=== PATIENT | female | born 2000 | race Caucasian/White ===

== ENCOUNTER 2021-04-07 14:16 | Emergency (ER) | payer OTHER, SELFPAY ==
[2021-04-07 15:20] VITALS: BP 132/78; PULSE 60; RESP 19; TEMP 37.1; O2SAT 98; BMI 28.3
--- NOTE | 2021-04-07 15:57 | HMH.EDUTC ---
[facility] [place] Clinical Impression: Concussion syndrome Disposition: Home, Self-Care Condition on Discharge: Good Instructions: DI for Concussion, Concussion Additional Instructions: Go home and sit in dark room and allow time for healing Go straight to the closed Emergency Room if you start having worse headache your life, severe vomiting, loss of vision, changes in behavior etc Follow up with your Family Doctor for clearance to return to work Return if needed Make sure you are drinking plenty of fluids Over the counter Tyelnol may help with headache Prescriptions: Ondansetron [Zofran 4mg ODT] 4 mg PO TIDP PRN #6 tab PRN Reason: Nausea Transmission Status: Pending to [id number] Referrals: Provider,Referral, MD [Primary Care Provider] - As needed Forms: Work/School Release Time of Disposition: 16:12 Medical Decision Making - Devante Inquiry Pt receiving controlled substance: No Devante was queried for this patient: No Vital Signs: 04/07/21 15:20 Temperature 98.7 F Temperature Source Oral Pulse Rate [Right Brachial] 60 Respiratory Rate 19 Blood Pressure [Right Arm] 132/78 Blood Pressure Mean [Right Arm] 96 Blood Pressure Source [Right Arm] Automatic Cuff Blood Pressure Position [Right Arm] Sitting 02 Sat by Pulse Oximetry 98 Oxygen Delivery Method Room Air Medical Decision Narrative: Discussed with patient and due to symptoms and headache with blurry vision on and off after hitting her head recommended transfer to the ED and patient refused states that she is only having mild symptoms right now and she has had several concussion in the past and came in to get a not for work States that if symptoms worsen or return she will go straight to ER Patient aware of risks even and still declined [facility] [place] HPI - General Stated complaint: possible concusion Time Seen by Provider: 04/07/21 15:57 Mode of Arrival: Ambulatory Source of Information: Patient Limitations: No Limitations Description of Symptoms (Recalled from Triage Doc. by RN): PATIENT STATES SHE HIT HER HEAD WITH CAR DOOR LAST NIGHT. C/O BLURRED VISION, DIZZINESS, HEADACHE AND NAUSEA HEENT Symptoms (Recalled from RN notes): Yes Resp Symptoms (Recalled from RN notes): No Skin Symptoms (Recalled from RN notes): No MS Symptoms (Recalled from RN notes): No Functional Status (Recalled from RN notes): WNL - History of Present Illness Provider Complaint: Patient states that she has had several concussions in the past States that yesterday she was getting in her car when the wind blew and her door hit her in the back of her head States that she had a headache and dizziness with nausea yesterday with occasional blurry vision States today she has still had achy like headache on and off and she was riding in the car earlier and she felt car sick and had nausea so she was worried she may have a concussion again and she works for the [employer] and wanted to get a note States that right now her symptoms are mild - Related Data Home Medications Medication Instructions Recorded Confirmed drospirenone 3 mg-ethinyl 1 tab PO DAILY tab 07/06/19 04/07/21 estradiol 0.02 mg tablet Previous Rx's Medication Instructions Recorded Ondansetron [Zofran 4mg ODT] 4 mg PO TIDP PRN #6 tab 04/07/21 Allergies Allergy/AdvReac Type Severity Reaction Status Date / Time latex Allergy rash, Verified 07/06/19 18:18 hives, itch - Worker's Comp Is this a Worker's Comp case?: No [facility] History - Hepatitis A Screen Drug use history?: No High risk sexual behaviors?: No History of sexually transmitted infection?: No Currently employed?: No Childcare worker?: No Do you have indoor plumbing?: Yes Do you have electricity?: Yes Attestation statement:: This patient has been screened for Hepatitis A risk factors. I have reviewed the patient's past medical history: Yes Medical History: Reports:: Asthma, Gastroesophageal Reflux Disease(
[2021-04-07 16:16] VITALS: BP 132/78; PULSE 60; RESP 19; TEMP 37.1; O2SAT 98
== END 2021-04-07 16:22 | disposition home or self-care (01) ==
PROVIDERS: Emergency Provider Nurse Practitioner
DX: S06.0X0A Concussion without loss of consciousness, initial encounter (principal); W22.8XXA Striking against or struck by other objects, initial encounter; Y92.89 Other specified places as the place of occurrence of the external cause
CPT/HCPCS: 99202; G0463

== ENCOUNTER 2021-06-10 11:11 | Emergency (ER) | payer OTHER, SELFPAY ==
[2021-06-10 12:51] VITALS: BP 139/78; PULSE 84; RESP 16; TEMP 37.3; O2SAT 99; BMI 28.3
[2021-06-10 13:23] LABS: UTC Influenza A Antigen Negative (Negative); UTC Strep Screen (Rapid) Negative (Negative)
[2021-06-10 13:24] LABS: UTC Influenza B Antigen Negative (Negative)
[2021-06-10 13:47] LABS: Adenovirus,PCR Not Detected (NotDetected); Bordetella Pertussis Not Detected (NotDetected); Chlamydophila Pneumoniae, PCR Not Detected (NotDetected); Coronavirus 229E Not Detected (NotDetected); Coronavirus NL63 Not Detected (NotDetected); Coronavirus OC43 Not Detected (NotDetected); Coronovirus HKU1,PCR Not Detected (NotDetected); Human Metapneumovirus Not Detected (NotDetected); Influenza A, PCR Not Detected (NotDetected); Influenza AH1, 2009 Not Detected (NotDetected); Influenza AH1, PCR Not Detected (NotDetected); Influenza AH3,PCR Not Detected (NotDetected); Influenza B, PCR Not Detected (NotDetected); Mycoplasma Pneumoniae, PCR Not Detected (NotDetected); Parainfluenza 1, PCR Not Detected (NotDetected); Parainfluenza 2, PCR Not Detected (NotDetected); Parainfluenza 3, PCR Not Detected (NotDetected); Parainfluenza 4, PCR Not Detected (NotDetected); Respiratory Syncytial Virus Not Detected (NotDetected); Rhinovirus/Enterovirus Not Detected (NotDetected)
--- NOTE | 2021-06-10 14:00 | HMH.EDUTC ---
[facility] – [place] Disposition Clinical Impression: Flu-like symptoms Disposition: Home, Self-Care Condition on Discharge: Good Instructions: How to Avoid a Cold or Flu, Common Cold, DI for Viral Upper Respiratory Infection -- Adult Additional Instructions: ? Start Tamiflu today if you are going to take it. Discussed risk and possible benefits. Lots of rest ? Increase Fluids water, Gatorade, powerade, pedialyte,if /toddler/child ? Alternate Tylenol and / or ibuprofen as discussed for fever, aches, chills Follow up IMMEDIATELY with your family doctor for new or worsening Symptoms OR no noticeable improvement over the next 48-72 hours, 911 for difficulty or breathing ? You or your child area contagious until no fever, aches, chills for 24 hours with medication for symptoms ? Help Prevent the spread of influenza: ? Wash your hands often. Use soap and water. Wash your hands after you use the bathroom, change a child's diapers, or sneeze. Wash your hands before you prepare or eat food. Use gel hand cleanser that has 60% alcohol, when soap and water are not available. Do not touch your eyes, nose, or mouth unless you have washed your hands first. ? Cover your mouth when you sneeze or cough. Cough into a tissue or the bend of your arm. If you use a tissue, throw it away immediately and wash your hands. ? Clean shared items with a germ-killing car cleaner. Clean table surfaces, doorknobs, and light switches. Do not share towels, silverware, and dishes with people who are sick. Wash bed sheets, towels, silverware, and dishes with soap and water. ? Wear a mask over your mouth and nose if you are sick. The face mask may help protect others from becoming infected with the flu. Wear the mask when in common areas of your home or if you seek care with a healthcare provider. ? Stay away from others if you are sick. Stay at home until 24 hours after your fever and symptoms are gone. You were tested for today for COVID19 your test result should be back in the next 24-48 hours, you may Check your results on the [facility] My Health Portal if you have trouble logging on you may call You was given a handout with instructions for Self Quarantine and Self isolation for while you wait on test results and what to do if they are positive If you are positive the Health Dept will be contacting you also Make sure to take your Vitamins Vit. C Vit D and Zinc if you can take them Prescriptions: Oseltamivir Phosphate [Tamiflu 75mg Capsule] 75 mg PO BID #10 cap Transmission Status: Pending to [facility]/pharmacy #[id number] Referrals: Bo Mendes [Primary Care Provider] - As needed Forms: Work/School Release Time of Disposition: 14:09 Medical Decision Making - Devante Inquiry Pt receiving controlled substance: No Devante was queried for this patient: No Vital Signs: 06/10/21 12:51 Temperature 99.2 F Temperature Source Oral Pulse Rate [Right Brachial] 84 Respiratory Rate 16 Blood Pressure [Right Arm] 139/78 Blood Pressure Mean [Right Arm] 98 Blood Pressure Source [Right Arm] Automatic Cuff Blood Pressure Position [Right Arm] Sitting 02 Sat by Pulse Oximetry 99 Oxygen Delivery Method Room Air - Lab Data Lab results reviewed: Yes: I reviewed the patient's lab results. Lab Results 06/10/21 13:02: Influenza Type A Ag Negative, Influenza Type B Ag Negative 06/10/21 13:02: Strep Scn Rapid Clinic Negative Orders (Tests/Meds): ORDERS Category Date Time Status Full Resp Panel w/COVID ([facility]) Routine Lab 06/10/21 12:56 Received Strep Screen Confirmation Stat Micro 06/10/21 13:02 Received [facility] UTC HPI - General Stated complaint: cough, congestion, fever chills Time Seen by Provider: 06/10/21 14:01 Mode of Arrival: Ambulatory Source of Information: Patient Limitations: No Limitations Description of Symptoms (Recalled from Triage Doc. by RN): cough. congestion HEENT Symptoms (Recalled from RN notes): Yes Resp Symptoms (Recalled from RN notes): Yes Skin Symptoms (Recalled
[2021-06-10 14:21] VITALS: BP 139/78; PULSE 84; RESP 16; TEMP 37.3; O2SAT 99
[2021-06-10 20:03] LABS: Coronavirus 19, PCR Detected (NotDetected)
== END 2021-06-10 14:22 | disposition home or self-care (01) ==
PROVIDERS: Emergency Provider Nurse Practitioner; PCP Internal Medicine Cardiovascular Disease
DX: U07.1 COVID-19 (principal); J45.909 Unspecified asthma, uncomplicated; K21.9 Gastro-esophageal reflux disease without esophagitis
CPT/HCPCS: 87581; 87632; 87798; 87804; 87880; 99203; C9803; G0463; U0003; U0005